=== PATIENT | male | born 2000 | race Caucasian/White ===

== ENCOUNTER 2023-12-29 21:42 | Emergency (ER) | payer BC, SELFPAY ==
[2023-12-29 21:52] VITALS: BP 155/98; PULSE 115; RESP 18; TEMP 37.5; O2SAT 98; BMI 41.0
[2023-12-29 23:27] VITALS: BP 146/82; PULSE 122; RESP 19; TEMP 36.1; O2SAT 97
[2023-12-29] MEDS: Bacitracin Oint 0.9 GM PACKET 1 APPL TOPICAL (23:51)
[2023-12-29] MEDS: Diphth,Pertus(ACell),Tet Adult 0.5 ML SYRINGE IM (23:51)
[2023-12-29] MEDS: Lidocaine HCl 1 % MPF 5 ML VIAL 10 ML INFILTRATI (23:51)
--- NOTE | 2023-12-30 00:23 | ED_ITS ---
HPI - Wound/Laceration General Chief Complaint: Wound/Laceration Stated Complaint: Eyebrow lac Time Seen by Provider: 12/29/23 23:25 Source: patient Mode of arrival: ambulatory Limitations: no limitations History of Present Illness HPI narrative: Patient is a 23-year-old male presenting to the ED with multiple lacerations to right eyebrow. He states that he fell while skateboarding. He denies loss of consciousness. He is not anticoagulated. Denies headache or changes in vision. States Tdap is not up to date. Onset (ago): hour(s) Location: face Place: outdoors Patient tetanus UTD: No Context: accidental and fall Associated symptoms: pain (localized tenderness) Treatments prior to arrival: bandage Related Data Allergies Allergy/AdvReac Type Severity Reaction Status Date / Time No Known Allergies Allergy Verified 12/29/23 21:51 Review of Systems 2 Review of Systems: As per HPI. Yes all other systems are reviewed and are negative Constitutional: Constitutional: Reports as per HPI [facility] Social History Social History Advance Directives: No Advance Directives Information Provided: No Physical Exam 2 Vital Signs: Vital Signs: Last Vital Signs Temp 97.0 F 12/29/23 23:27 Pulse 122 H 12/29/23 23:27 Resp 19 12/29/23 23:27 BP 146/82 H 12/29/23 23:27 Pulse Ox 97 12/29/23 23:27 O2 Del Method Room Air 12/29/23 23:27 BMI result Body Mass Index 41.0 Vital signs have been reviewed and appear to be correct. Blood pressure elevated. Heart rate tachycardic. Respiratory rate normal. Temperature normal. Oxygen saturation normal. Const: General: cooperative, healthy appearing and no acute distress O rientation/consciousness: oriented to person, oriented to place, oriented to time and patient oriented x3 Limitations: no limitations HEENT: Other: Head: Yes normocephalic and Yes atraumatic Ears: external ears normal General nose exam: Normal external nose present Face and sinus: Yes sinuses nontender, Yes face symmetric, No crepitus, No ecchymosis and Yes laceration Face images: 1. 1cm linear laceration 2. 1cm y-shaped laceration 3. 5mm linear laceration Mouth: oropharynx normal and moist mucous membranes Throat: Yes uvula midline Eyes: Other: Eyelids: Yes other (5mm laceration to right upper eyelid) Conjunctivae: conjunctivae normal Sclerae: sclerae normal Pupils: Equal, round and reactive pupils present EOM: EOMs intact bilaterally Neck: Neck: Yes normal visual inspection and Yes supple Resp: Effort & Inspection: normal respiratory effort and able to speak in complete sentences Auscultation: clear to auscultation bilaterally Cardio: Rate: regular rate Rhythm: regular rhythm Heart sounds: S1 normal heart sound present and S2 normal heart sound present GI: Palpation (GI): Soft to palpation and nontender Auscultation: n ormoactive bowel sounds : General: Yes no CVA tenderness Back/Spine/Pelvis: Back: no CVA tenderness Skin: General skin exam: elasticity normal and turgor normal Neuro: General: oriented to person, oriented to place, oriented to time, patient oriented x3, moves all extremities, no focal motor deficits and CN's II- XI intact bilaterally Cranial nerves: Yes Equal, round and reactive pupils present Cognition (Neuro): normal cognition Extrem: General: Yes full ROM, Yes no pedal edema and Yes no calf tenderness Psych: Mental Status: mental status grossly normal Affect: normal affect Thought process: Normal thought process present Medications Administered Discontinued Medications Generic Name Dose Route Start Last Admin Trade Name Freq PRN Reason Stop Dose Admin Bacitracin 1 appl 12/29/23 23:31 12/29/23 23:51 Bacitracin Oint 0.9 Gm Packet TOPICAL 12/29/23 23:32 1 appl ONCE ONE Administration Protocol Diphtheria/Tetanus/Acell Pertussis 0.5 ml 12/29/23 23:31 12/29/23 23:51 Diphth,Pertus(Acell),Tet Adult 0.5 Ml Syringe IM 12/29/23 23:32 0.5 ml .ONCE ONE Administration Lidocaine HCl 10 ml 12/29/23 23:31 12/29/23 23:51 Lidocaine Hcl 1 % Mpf 5 Ml Vial INFILTRATI 12/29/23 23:32 10 ml ONCE ONE Administration Medical Decision Making Medical Decision Making [facility] Narrative: Patient is a 23-year-old male presenting to the ED with multiple lacerations to right eyebrow. On exam patient is awake, A+Ox3, tachycardic, VS otherwise WNL, afebrile, normal neurological exam without focal deficits, physical exam findings as above. Given reported symptoms and physical exam findings, initial differential includes laceration, contusion. Do not suspect fracture. Lacerations repaired as per procedure note. Bacitracin applied. Wound care instructions discussed with patient including return precautions. Advised patient to have sutures removed in 5 days. Patient verbalized understanding of and agreement with plan. Differential Diagnosis Differential Diagnoses: The differential diagnosis associated with the presentation includes as per [facility] External Record Review External record reviewed: Inpatient record, Office record and Outpatient record Procedures Laceration Laceration 1: Site: face (upper eyelid) Side (If applicable): right Size (cm): 0.5 Description: linear Depth: simple, single layer Local Anesthetic: lidocaine 1% Amount of anesthesia used (mL): 1 Pre-repair: wound explored, irrigated extensively and deep structures intact Skin layer closed with: other (prolene) Size (cm): 6-0 Number of sutures: 2 Technique: simple, interrupted Laceration 2: Site: face (medial eyebrow) Side (If applicable): right Size (cm): 1 Description: irregular (Y-shaped) Depth: simple, single layer Amount of anesthesia used (mL): 2 Pre-repair: wound explored, irrigated extensively and deep structures intact Skin layer closed with: other (prolene) Size (cm): 5-0 Number of sutures: 4 Technique: simple, interrupted Laceration 3: Site: face (lateral eyebrow) Side (If applicable): right Size (cm): 1 Description: linear Depth: simple, single layer Local Anesthetic: lidocaine 1% Amount of anesthesia used (mL): 2 Pre-repair: wound explored Skin layer closed with: other Size (cm): 6-0 Number of sutures: 3 Technique: simple, interrupted Discharge Plan Discharge Clinical Impression: Laceration of eyebrow, right Qualifiers: Encounter type: initial encounter Qualified Code(s): S01.111A - Laceration without foreign body of right eyelid and periocular area, initial encounter Patient Disposition: Home, Self-Care Instructions: Facial Laceration (ED), Stitches Removal (ED), Care For Your Stitches (DC) Additional Instructions: You have been evaluated in the emergency department today for a laceration to your eyebrow. Your laceration was repaired in the emergency department with sutures. Please keep the area surrounding the laceration clean and dry and keep dressing in place for the next 24 hours. After that please change the dressing and assess the wound daily. Keep the area out of direct sunlight for the next 6 months to help prevent scarring. You should have the sutures removed in 5 days. Do not submerge your face in water and avoid all outdoor water. If you develop fever, redness, swelling at the site of your laceration, or thick yellow drainage please come back to the ER for a wound check. You have: 2 sutures to right eyelid, 3 sutures to medial laceration, 4 sutures to lateral laceration (within eyebrow) Stand Alone Forms: Work/School Release
== END 2023-12-30 00:37 | disposition home or self-care (01) ==
PROVIDERS: Emergency Provider Emergency Medicine
DX: S01.111A Laceration without foreign body of right eyelid and periocular area, initial encounter (principal); S00.211A Abrasion of right eyelid and periocular area, initial encounter; W01.0XXA Fall on same level from slipping, tripping and stumbling without subsequent striking against object, initial encounter; Y93.9 Activity, unspecified; Y92.480 Sidewalk as the place of occurrence of the external cause; Y99.8 Other external cause status; Z23 Encounter for immunization
CPT/HCPCS: 12052; 90471; 90715; 99282; 99284